=== PATIENT | female | born 1960 | race Caucasian/White ===

== ENCOUNTER 2019-10-19 01:44 | Emergency (ER) | payer OTHER, SELFPAY ==
[2019-10-19 01:45] VITALS: BP 179/100; PULSE 101; RESP 16; TEMP 36.4; O2SAT 99
[2019-10-19 01:47] VITALS: RESP 16
[2019-10-19] MEDS: Ciprofloxacin 500 MG TAB PO (02:12)
--- NOTE | 2019-10-19 02:29 | W.ED.GENAD ---
Discharge Plan Disposition Patient Disposition: HOME Condition: Good Discharge Details Chief Complaint: GenMedical Clinical Impression: Exposure to meningitis Primary Care Provider: Karrie,Local ED Provider: Rosales Francis Home Meds and New Rx's Prescriptions: No Action No Known Home Meds RF: 0 Discharge Instructions Additional Instructions: Because your has potential diagnosis of Neisseria meningitidis you have been given a prophylactic dose of ciprofloxacin. You have been in close contact with him for the last few days. In discussion with infectious disease at [facility] we do not think this is related to coronavirus. Please contact [facility] in the morning for update on your . For now they are not going to allow visitors. Referrals: Primary Care Provider [Outside] Medical Decision Making Because the patient's has possible Neisseria meningitidis and she has been in close contact with him for the last 4 to 5 days she will be prophylaxed with ciprofloxacin 500 mg orally. Watch for any signs of illness. HPI General Mode of arrival: ambulatory. Date/Time Provider Initiated Documentation: 10/19/19 02:07. Limitations to Documentation: no limitations. Information obtained by: patient. 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 She has been taking care of him for the last 4 to 5 days. She feels perfectly well but has been in close contact with her taking care of him. Related Data Home Medications Medication Instructions Recorded Confirmed Unknown [No Known Home Meds] 10/19/19 10/19/19 Allergies Allergy/AdvReac Type Severity Reaction Status Date / Time cefprozil [From Cefzil] Allergy Unverified 10/19/19 01:47 clindamycin Allergy Unverified 10/19/19 01:47 gentamicin Allergy Unverified 10/19/19 01:47 Tetanus Vaccines and Toxoid Allergy Unverified 10/19/19 01:47 General Stated Complaint: GenMedical BRITTANY: 4 Review of Systems Constitutional Constitutional: Denies chills, Denies fatigue, Denies fever(s), Denies headache(s) and Denies malaise ENT Ears, Nose, Mouth, and Throat: Denies headache(s) Respiratory Respiratory: Denies chest congestion and Denies cough Neurologic Neurologic: Denies confusion and Denies headache(s) Psychiatric Psychiatric: Denies confusion Endocrine Endocrine: Denies fatigue [facility] Medical History No active medical problems (Acute) Surgical History No significant past surgical history (Acute) Social History Smoking/Tobacco Use Status: Former Tobacco Use Alcohol Intake: current Alcohol Intake frequency: holidays/special occasions only Drug use: Never Substance use type: does not use Do you feel safe at home: Yes Do you feel safe in your relationship?: Yes Exam Const General: cooperative, healthy appearing, comfortable and no acute distress Orientation: alert and oriented x3 Neck Neck: trachea midline and supple Resp Effort & Inspection: normal respiratory effort Neuro General: patient alert, patient oriented x3, gait normal and CN's II-XI intact bilaterally Cognition: normal cognition Speech: speech normal Gait: normal gait Motor: strength 5/5 throughout Sensory Exam: no sensory deficits noted Course Vital Signs Vital signs: Vital Signs Temperature 97.5 F L 10/19/19 01:45 Pulse 101 H 10/19/19 01:45 Respiratory Rate 16 10/19/19 01:45 Blood Pressure 179/100 H 10/19/19 01:45 Pulse Oximetry 99 10/19/19 01:45 Temperature 97.5 F L 10/19/19 01:45 Temperature Source Skin 10/19/19 01:45 Pulse 101 H 10/19/19 01:45 Respiratory Rate 16 10/19/19 01:47 Respiratory Effort 10/19/19 01:47 Respiratory Depth Normal 10/19/19 01:47 Respiratory Pattern Normal 10/19/19 01:47 Blood Pressure 179/100 H 10/19/19 01:45 Blood Pressure Position Sitting 10/19/19 01:45 Pulse Oximetry 99 10/19/19 01:45 Oxygen Delivery Method Room Air 10/19/19 01:45 Oxygen Flow Rate 0 10/19/19 01:45 Pain Level 0 10/19/19 01:45
== END 2019-10-19 02:45 | disposition home or self-care (01) ==
PROVIDERS: Emergency Provider Emergency Medicine
DX: Z20.811 Contact with and (suspected) exposure to meningococcus (principal)
CPT/HCPCS: 99283